=== PATIENT | female | born 1990 | race Two or more races ===

== ENCOUNTER 2017-08-28 12:18 | Emergency (ER) | payer BC ==
[2017-08-28 12:47] VITALS: BP 124/84; PULSE 86; RESP 16; TEMP 98.3; O2SAT 100
--- NOTE | 2017-08-28 13:19 | ED PDOC ---
HPI: Female Pain Time Seen by Provider: 08/28/17 12:58 Chief Complaint (Nursing): Female Genitourinary Chief Complaint (Provider): Test History Per: Patient History/Exam Limitations: no limitations Additional Complaint(s): Zena is a 27 y/o female noted positive who presents to the ED to confirm her . Patient denies abdominal pain or vaginal bleeding. PMD: None Past Medical History Reviewed: Historical Data, Nursing Documentation, Vital Signs Vital Signs: Last Vital Signs Temp 98.3 F 08/28/17 12:42 Pulse 86 08/28/17 12:42 Resp 16 08/28/17 12:42 BP 124/84 08/28/17 12:42 Pulse Ox 100 08/28/17 12:42 - Medical History PMH: No Chronic Diseases - Family History Family History: States: Unknown Family Hx - Home Medications Home Medications: Ambulatory Orders Medication Instructions Recorded Pnv#26/Iron Poly/FA/Dha 1 each PO DAILY #30 capsule 08/28/17 [Vitafol-One Capsule] - Allergies Allergies/Adverse Reactions: Allergies Allergy/AdvReac Type Severity Reaction Status Date / Time No Known Allergies Allergy Verified 08/28/17 12:42 Review of Systems ROS Statement: Except As Marked, All Systems Reviewed And Found Negative Gastrointestinal: Negative for: Abdominal Pain Genitourinary Female: Negative for: Vaginal Bleeding Physical Exam - Reviewed Nursing Documentation Reviewed: Yes Vital Signs Reviewed: Yes - Physical Exam Appears: Positive for: Well, Non-toxic, No Acute Distress Neurologic/Psych: Positive for: Alert, Oriented - ECG O2 Sat by Pulse Oximetry: 100 (RA) Pulse Ox Interpretation: Normal Medical Decision Making Medical Decision Making: Time: 12:58 Initial Impression: Test Confirmation Initial Plan: --Urine Time: 13:20 -- positive Scribe Attestation: Documented by Hilario Yoder, acting as a scribe for Rory Issa PA-C Provider Scribe Attestation: All medical record entries made by the Scribe were at my direction and personally dictated by me. I have reviewed the chart and agree that the record accurately reflects my personal performance of the history, physical exam, medical decision making, and the department course for this patient. I have also personally directed, reviewed, and agree with the discharge instructions and disposition. Disposition - Clinical Impression Clinical Impression: - Patient ED Disposition Is Patient to be Admitted: No - Disposition Referrals: Mane Birmingham MD [Staff Provider] - Disposition: Routine/Home Disposition Time: 13:27 Condition: FAIR Prescriptions: Pnv#26/Iron Poly/FA/Dha [Vitafol-One Capsule] 1 each PO DAILY #30 capsule Instructions: (ED) Forms: [facility] ([place])
== END 2017-08-28 13:48 | disposition home or self-care (01) ==
LOC: H.ER 12:18
DX: Z33.1 Pregnant state, incidental (principal)

== ENCOUNTER 2018-02-05 05:15 | Inpatient (IN) | payer BC ==
[2018-02-05 05:38] VITALS: BMI 30.9
[2018-02-05] MEDS ORDERED: Lactated Ringer's 1,000 ML IV ONE (05:52)
[2018-02-05] MEDS ORDERED: Lactated Ringer's 1,000 ML IV SCH (06:00)
[2018-02-05] MEDS ORDERED: Nalbuphine HCL 10 mg/ml Ampule IVP PRN (06:09)
[2018-02-05 06:41] LABS: BASO # 0.1 K/uL (0.0-0.2); BASO % 0.5 % (0.0-2.0); EOS % 0.2 % (0.0-4.0); HEMOGLOBIN 10.9 g/dL (12.0-16.0); LYMPH # 2.3 K/uL (1.0-4.3); LYMPH % 18.3 % (20.0-40.0); MEAN CELL VOLUME 77.4 fl (81.0-99.0); MEAN CORPUSCULAR HEMOGLOBIN 25.1 pg (27.0-31.0); MEAN CORPUSCULAR HGB CONC 32.4 g/dL (33.0-37.0); MEAN PLATELET VOLUME 9.3 fl (7.2-11.7); MONO # 0.8 K/uL (0.0-0.8); MONO % 6.2 % (0.0-10.0); NEUT # 9.4 K/uL (1.8-7.0); NEUT % 74.8 % (50.0-75.0); RBC 4.35 Mil/uL (3.80-5.20); RED CELL DISTRIBUTION WIDTH 19.4 % (11.5-14.5); WHITE BLOOD COUNT 12.6 K/uL (4.8-10.8)
--- NOTE | 2018-02-05 06:51 | OBADHP ---
Datetime: 02/05/2018 06:44 IP Adm Impression Other: painful CTX latent phase of labor Admit Comment, IP Provider: 27yo IUP at 39w c/o painful TX since 1am. No SROM. no VB. +FM POBGYNH: x 1 (6lb 4oz) PGYNH: denies STD PMH: denies PSH: denies NKA PSOH: denies smoking ETOH drugs A: IUP at 39w latent phase of labor - painful CTX Rh neg PLAN: Admit; pain management, labor, medications, risks/complicatoins discussed. She udnerstood. W ill try Nitrous initially..alsoo discussed IV sedatoin/epidural GBS+ IV Antibiotics Pelvic Type - PN: Adequate Extremities - PN: Normal Abdomen - PN: Normal Back - PN: Normal Breast - PN: Not Done Lungs - PN: Normal Heart - PN: Normal Thyroid - PN: Normal Neurologic - PN: Normal HEENT - PN: Normal General - PN: Abnormal Presentation-Admit: Vertex FHR - Baseline A Provider: 120 Membranes, Provider: Intact Comments, ACOG Physical Exam: In mild distress secondary to pain Pool Provider: Negative IP Hx Assessment: The History has been Reviewed and is Current IP Chief Complaint: Uterine contractions NICHD Variability Prov Fetus A: Moderate 6-25bpm NICHD Accel Fetus A IP Provider: 15X15 FHR Category Provider Fetus A: Category I NICHD Decel Fetus A IP Provider: None Dilatation, Provider: 2-3 Genitourinary Exam: Normal DTRs - PN: Normal EGA AdmitDate IP: 39.4 IP Adm Impression: Term, intrauterine ; Intact Membranes IP Admit Plan: Admit to unit; Initiate labor protocol
[2018-02-05] MEDS ORDERED: Fentanyl/Bupivacaine HCl 250 ML EPI ONE (07:31)
--- NOTE | 2018-02-05 08:17 | OBPN ---
Datetime: 02/05/2018 08:13 IP Progress Impression: Normal progression of labor; Reassuring heart rate IP Informed Consent Obtain: Vaginal Delivery; Risks, Benefits and Alternatives Discussed IP Progress Plan: Continue present management; Anticipate Vaginal Delivery Pool Provider: Negative Membranes, Provider: Bulging Contraction Comments Provider: 2-5m FHR - Baseline A Provider: 130 Presentation-Admit: Vertex IP Progress Note Comment: She rec'd epidural because nitrous oxide was not helping. SVE 4-5cm A: active phaser of labor(prior exam 2cm) GBS+ S/P epidural dosing PLAN: 1st dose of PCN given observe labor progress NICHD Accel Fetus A IP Provider: 15X15 FHR Category Provider Fetus A: Category I NICHD Variability Prov Fetus A: Minimal - Undetectable to <5bpm Dilatation, Provider: 4-5 Effacement, Provider: 90 Station, Provider: -1 NICHD Decel Fetus A IP Provider: None
[2018-02-05] MEDS ORDERED: Benzocaine/Menthol SPRAY TOP PRN ×2 (14:33→18:24)
[2018-02-05] MEDS ORDERED: Oxycodone/Acetaminophen 5/325 mg Tab PO PRN (14:33)
[2018-02-06 07:01] LABS: BASO # 0.1 K/uL (0.0-0.2); BASO % 0.4 % (0.0-2.0); EOS % 0.3 % (0.0-4.0); HEMOGLOBIN 8.7 g/dL (12.0-16.0); LYMPH # 2.7 K/uL (1.0-4.3); MEAN CORPUSCULAR HGB CONC 32.4 g/dL (33.0-37.0); MEAN PLATELET VOLUME 9.6 fl (7.2-11.7); MONO % 7.5 % (0.0-10.0); NEUT # 9.8 K/uL (1.8-7.0); NEUT % 71.8 % (50.0-75.0); NRBC % 0.1 % (0.0-0.0); RBC 3.49 Mil/uL (3.80-5.20); RED CELL DISTRIBUTION WIDTH 19.9 % (11.5-14.5); WHITE BLOOD COUNT 13.6 K/uL (4.8-10.8)
[2018-02-06] MEDS: Oxycodone/Acetaminophen 5/325 mg Tab PO PRN ×2 (08:31→13:39)
--- NOTE | 2018-02-06 08:45 | OBDS ---
DELIVERY PERSONNEL Delivery Doctor: Jody Brizuela MD Health Care Liaison: Gabriela Elliott [facility] Anesthesiologist: Yoanna Beasley MD MATERNAL INFORMATION Delivery Anesthesia: Epidural Medications in Delivery: pitocin Estimated Blood Loss (ml): 350 Placenta Cultured: No Maternal Complications: None Provider Comments: Uncomplicated of a viable female, BRITTANY with cephalic presentation. BW of 3385 g with scores of 9/9 over an intact perineum with 2nd degree lac repaired. was bulb suct ioned, and cried spontaneously. No nuchal cord noted. was placed on mother. Cord was doubled c lamped, and cut by father. Placenta was delivered intact with three vessels were noted. Cervix and va jimena inspected for lacerations, and none were noted. EBL- 300ml Mother and baby stable. Both tolerated the procedure well. (Annotations: Data stored by CPN on behalf of user) LABOR SUMMARY EDC: 02/08/2018 00:00 No. Babies in Womb: 1 Attempted: No Labor Anesthesia: Epidural LABOR INFORMATION Reason for Induction: Not Applicable Onset of Labor: 02/05/2018 01:00 Complete Dilatation: 02/05/2018 11:08 Oxytocin: N/A Group B Beta Strep: Positive Antibiotics # of Doses: 2 Antibiotics Time of Last Dose: 1004 am Steroids Given: None Reason Steroids Not Administered: Not Applicable MEMBRANES Membranes Rupture Method: Artificial Rupture of Membranes: 02/05/2018 11:08 Length of Rupture (hrs): 0.47 Amniotic Fluid Color: Clear Amniotic Fluid Amount: Moderate Amniotic Fluid Odor: Normal STAGES OF LABOR Stage 1 hrs: 10 Stage 1 min: 8 Stage 2 hrs: 0 Stage 2 min: 28 Stage 3 hrs: 0 Stage 3 min: 9 Total Time in Labor hrs: 10 Total Time in Labor min: 45 VAGINAL DELIVERY Episiotomy: None Laceration Extension: Second Degree Laceration Type: Perineal Laceration Repair: Yes Laceration Repair Note: Second degree midline laceration. Area infiltrated with 1% lidocaine. lace ration repaired with 2.0 rapide without complication. Pt toleated well. Initial Vag Sponge Count: 25 Final Vag Sponge Count: 25 Initial Vag Sharps Count: 1 Final Vag Sharps Count: 1 Sponge Count Correct: Yes Sharps Count Correct: Yes BABY A INFORMATION Infant Delivery Date/Time: 02/05/2018 11:36 Method of Delivery: Vaginal Born in Route : No : N/A Forceps: N/A Vacuum Extraction: N/A Shoulder Dystocia : No SHOULDER DYSTOCIA BABY A Infant Delivery Date/Time: 02/05/2018 11:36 PRESENTATION/POSITION BABY A Presentation: Cephalic Cephalic Presentation: Vertex Vertex Position: Left Occipital Anterior Breech Presentation: N/A PLACENTA INFORMATION BABY A Placenta Delivery Time : 02/05/2018 11:45 Placenta Method of Delivery: Spontaneous Placenta Status: Delivered SCORES BABY A Heart Rate 1 min: >100 bpm Resp Effort 1 min: Good Cry Reflex Irritability 1 min: Cough or Sneeze or Pulls Away Muscle Tone 1 min: Active Motion Color 1 min: Body Artesian, Extremities Blue SCORE 1 MIN: 9 Heart Rate 5 min: >100 bpm Resp Effort 5 min: Good Cry Reflex Irritability 5 min: Cough or Sneeze or Pulls Away Muscle Tone 5 min: Active Motion Color 5 min: Body Artesian, Extremities Blue SCORE 5 MIN: 9 INFANT INFORMATION BABY A Gestational Age at Delivery: 39.4 Gestational Status: Term Outcome : Liveborn Infant Condition : Stable Sex: Female IDENTIFICATION/MEDS BABY A ID Band Number: [id number] ID Band Location: Left Leg; Left Arm Erythromycin Given: Given Both Eyes WEIGHT/LENGTH BABY A Infant Birthweight (gms): 3385 Infant Weight (lb): 7 Infant Weight (oz): 7 CORD INFORMATION BABY A No. Cord Vessels: 3 Nuchal Cord : N/A Nuchal Cord Other: none True Knot: none Cord Blood Taken: Yes Infant Suction: Mouth; Nose ASSESSMENT BABY A Complications: None Physical Findings at Delivery: Within Normal Limits Respirations: Appears Normal Supervisor Publications/ALS Called : No Transferred To: [place] [facility]
--- NOTE | 2018-02-06 08:48 | OBDS ---
DELIVERY PERSONNEL Delivery Doctor: Jody Brizuela MD Machine Straw Hat Presser: Gabriela Elliott [facility] Anesthesiologist: Yoanna Beasley MD MATERNAL INFORMATION Delivery Anesthesia: Epidural Medications in Delivery: pitocin Estimated Blood Loss (ml): 350 Placenta Cultured: No Maternal Complications: None Provider Comments: Uncomplicated of a viable female, BRITTANY with cephalic presentation. BW of 3385 g with scores of 9/9 over an intact perineum with 2nd degree lac repaired. was bulb suct ioned, and cried spontaneously. No nuchal cord noted. was placed on mother. Cord was doubled c lamped, and cut by father. Placenta was delivered intact with three vessels were noted. Cervix and va jimena inspected for lacerations, and none were noted. EBL- 300ml Mother and baby stable. Both tolerated the procedure well. (Annotations: Data stored by CPN on behalf of user) LABOR SUMMARY EDC: 02/08/2018 00:00 No. Babies in Womb: 1 Attempted: No Labor Anesthesia: Epidural LABOR INFORMATION Reason for Induction: Not Applicable Onset of Labor: 02/05/2018 01:00 Complete Dilatation: 02/05/2018 11:08 Oxytocin: N/A Group B Beta Strep: Positive Antibiotics # of Doses: 2 Antibiotics Time of Last Dose: 1004 am Steroids Given: None Reason Steroids Not Administered: Not Applicable MEMBRANES Membranes Rupture Method: Artificial Rupture of Membranes: 02/05/2018 11:08 Length of Rupture (hrs): 0.47 Amniotic Fluid Color: Clear Amniotic Fluid Amount: Moderate Amniotic Fluid Odor: Normal STAGES OF LABOR Stage 1 hrs: 10 Stage 1 min: 8 Stage 2 hrs: 0 Stage 2 min: 28 Stage 3 hrs: 0 Stage 3 min: 9 Total Time in Labor hrs: 10 Total Time in Labor min: 45 VAGINAL DELIVERY Episiotomy: None Laceration Extension: Second Degree Laceration Type: Perineal Laceration Repair: Yes Laceration Repair Note: Second degree midline laceration. Area infiltrated with 1% lidocaine. lace ration repaired with 2.0 rapide without complication. Pt toleated well. Initial Vag Sponge Count: 25 Final Vag Sponge Count: 25 Initial Vag Sharps Count: 1 Final Vag Sharps Count: 1 Sponge Count Correct: Yes Sharps Count Correct: Yes BABY A INFORMATION Infant Delivery Date/Time: 02/05/2018 11:36 Method of Delivery: Vaginal Method of Delivery: Vaginal Born in Route : No : N/A Forceps: N/A Vacuum Extraction: N/A Shoulder Dystocia : No SHOULDER DYSTOCIA BABY A Delivery Date/Time: 02/05/2018 11:36 PRESENTATION/POSITION BABY A Presentation: Cephalic Cephalic Presentation: Vertex Vertex Position: Left Occipital Anterior Breech Presentation: N/A PLACENTA INFORMATION BABY A Placenta Delivery Time : 02/05/2018 11:45 Placenta Method of Delivery: Spontaneous Placenta Status: Delivered SCORES BABY A Heart Rate 1 min: >100 bpm Resp Effort 1 min: Good Cry Reflex Irritability 1 min: Cough or Sneeze or Pulls Away Muscle Tone 1 min: Active Motion Color 1 min: Body Marrowbone, Extremities Blue SCORE 1 MIN: 9 Heart Rate 5 min: >100 bpm Resp Effort 5 min: Good Cry Reflex Irritability 5 min: Cough or Sneeze or Pulls Away Muscle Tone 5 min: Active Motion Color 5 min: Body Marrowbone, Extremities Blue SCORE 5 MIN: 9 INFORMATION BABY A Gestational Age at Delivery: 39.4 Gestational Status: Term Infant Outcome : Liveborn Infant Condition : Stable Sex: Female Sex: Female IDENTIFICATION/MEDS BABY A ID Band Number: [id number] ID Band Location: Left Leg; Left Arm Erythromycin Given: Given Both Eyes WEIGHT/LENGTH BABY A Infant Birthweight (gms): 3385 Weight (lb): 7 Weight (oz): 7 CORD INFORMATION BABY A No. Cord Vessels: 3 Nuchal Cord : N/A Nuchal Cord Other: none True Knot: none Cord Blood Taken: Yes Suction: Mouth; Nose ASSESSMENT BABY A Complications: None Physical Findings at Delivery: Within Normal Limits Infant Respirations: Appears Normal Restaurant Culinary Manager/ALS Called : No Transferred To: Nursery
[2018-02-06] MEDS: Levothyroxine 50 MCG TAB PO SCH (09:05)
[2018-02-07] MEDS: Levothyroxine 50 MCG TAB PO SCH (06:54)
--- NOTE | 2018-02-07 10:56 | OBPPN ---
Datetime: 02/07/2018 10:51 PP Pain Prov: Within normal limits PP Nausea Prov: Denies PP Flatus Prov: Yes PP Breasts Prov: Normal PP Heart Prov: Normal PP Lungs Prov: Normal PP Abdomen/Uterus Prov: Normal PP Lochia Prov: Normal PP Vulva/Perineum Prov: Normal PP CVA Tenderness Prov: Normal PP Extremities Prov: Normal PP Comments Phys Exam Prov: Fundus firm under umbilicus PP Impression Prov: Normal progression PP Plan Prov: Continue present management PP Progress Note Prov: Patient evaluated, denies CP, no SOB, no N/V, tolerating PO diet, ambulating/ voiding well, mild lochia, abdominal pain tolerable wtih meds A/P PPD #2 1. Discharge patient home 2. Discharge instructions reviewed IP PP Procedures: None Vital Signs Provider PP: Reviewed; Within Normal Limits Datetime: 02/06/2018 22:22 PP BM Prov: Yes PP Progress Prov: Normal
--- NOTE | 2018-02-07 10:58 | OBDCSUM ---
Datetime: 02/07/2018 10:55 Discharged to, Provider: Home Follow up at, Provider: OB Disch Instr Activity: Normal activity Disch Instr Diet: Regular Discharge Instructions, Provider: Routine instructions given Discharge Diagnosis, Provider: Term Delivered Discharge Time: 02/07/2018 10:56 Follow up in weeks, Provider: 6 wks Disch Referrals: None Contraception discussed, Prov: Yes
[2018-02-07 18:11] VITALS: BP 110/60; PULSE 72; RESP 18; TEMP 98.1; O2SAT 100
== END 2018-02-07 11:55 | disposition home or self-care (01) | DRG 775 ==
LOC: H.EROB2 05:15 → H.L&D 05:52 → H.OB/GYN 14:37
PROVIDERS: ADMIT Obstetrics & Gynecology; ATTEND Obstetrics & Gynecology
PROC: 10E0XZZ Delivery of Products of Conception, External Approach (ICD-10-PCS; principal; 2018-02-05)
PROC: 0KQM0ZZ Repair Perineum Muscle, Open Approach (ICD-10-PCS; 2018-02-05)
PROC: 4A1HXCZ Monitoring of Products of Conception, Cardiac Rate, External Approach (ICD-10-PCS; 2018-02-05)
DX: O99.824 Streptococcus B carrier state complicating childbirth (principal); E03.9 Hypothyroidism, unspecified; O70.1 Second degree perineal laceration during delivery; Z37.0 Single live birth; Z3A.39 39 weeks gestation of pregnancy; O99.284 Endocrine, nutritional and metabolic diseases complicating childbirth